=== PATIENT | male | born 1990 | race Caucasian/White ===

== ENCOUNTER 2017-06-01 14:08 | Emergency (ER) | payer OTHER ==
[~2017-06-01] VITALS: Ht 188 cm; Wt 72.6 kg
[~2017-06-01 14:08] MED LIST: ALBU90OI; ALBU90OI INH; AZIT250 PO; CODACE30 PO; CRUTCH2 USE; FLUSAL2505 IH; HYDACE5 PO; HYDGUAL120 PO; MONT5TCH; RXCODACET PO
[2017-06-01] MEDS ORDERED: Vibramycin100 MG PO (15:25)
[2017-06-01] MEDS ORDERED: Mupirocin22 GM (15:25)
== END 2017-06-01 15:17 | disposition home or self-care (01) ==
LOC: ER 14:08
DX: J34.0 Abscess, furuncle and carbuncle of nose (principal); J45.909 Unspecified asthma, uncomplicated; F17.200 Nicotine dependence, unspecified, uncomplicated; Z79.899 Other long term (current) drug therapy; Z86.14 Personal history of Methicillin resistant Staphylococcus aureus infection
CPT/HCPCS: 99283

== ENCOUNTER → 2022-09-24 | Outpatient (CLI) | payer OTHER ==
[~2022-09-24] MED LIST changes: +Mupirocin22 GM; +Vibramycin100 MG PO
== END | disposition home or self-care (01) ==
LOC: LAB SHORT 17:13 → LAB 17:13
DX: K04.7 Periapical abscess without sinus (principal)
CPT/HCPCS: 87070; 87205